=== PATIENT | female | born 1980 | race Hispanic/Latino ===

== ENCOUNTER 2016-09-04 12:09 | Emergency (ER) | payer OTHER ==
[~2016-09-04] VITALS: Ht 162.6 cm; Wt 81.0 kg
[~2016-09-04 12:09] MED LIST: AMOXICILLIN500 M1 PO; ANAPROX DS550 M1 PO; ANTIVERT25 MG PO; AUGMENTIN875 MG PO; CEPHALEXIN500 MG PO; COLACE100 MG PO; DOXYCYCLINE MO100 MG PO; ENDOCET 5-3251 EACH PO; FLEXERIL10 MG PO; HYCODAN SYRUP480 ML PO; HYDROCODON-ACE1 EAC7 PO; IBUPROFEN600 MG PO; IBUPROFEN800 MG PO; MAGIC MOUTHWASH1 ML MM; MOTRIN600 MG PO; MOTRIN800 MG PO; NAPROSYN500 MG PO; NAPROXEN500 MG PO; NORCO 5/3251 TABLET PO; PERCOCET 5/31 TABLET PO; REGLAN10 MG PO; XANAX1 MG PO; XANAX2 MG PO; wellbutrin PO
[2016-09-04 12:59] LABS: ADD MIUA? YES; BILIRUBIN NEGATIVE; BLOOD LARGE; COLOR YELLOW ((YELLOW)); GLUCOSE (STRIP) NEGATIVE; KETONES NEGATIVE; LEUKOCYTES SMALL; NITRITE NEGATIVE; PROTEIN (STRIP) NEGATIVE; SPECIFIC GRAVITY 1.016 (1.000-1.030); UROBILINOGEN 0.2 MG/DL (0.2-1.0)
[2016-09-04 13:06] LABS: HEMATOCRIT 41.6 % (36.0-46.0); MCH 28.5 PG (29.0-34.0); MCHC 32.5 G/DL (30.0-36.0); MCV 87.8 FL (83-99); RBC DIS.WIDTH-CV 12.2 % (11.8-14.6); RBC DIS.WIDTH-SD 39.8 % (39-53); RED BLOOD COUNT 4.74 M/uL (3.80-5.20); WHITE BLOOD COUNT 8.2 K/uL (4.1-10.2)
[2016-09-04 13:17] LABS: CHLORIDE 108 mEq/L (99-109); POTASSIUM 4.3 mEq/L (3.7-5.4); SODIUM 138 mEq/L (136-147)
[2016-09-04 13:20] LABS: GLUCOSE 92 mg/dL (70-99)
[2016-09-04 13:21] LABS: ANION GAP 9 MEQ/L (2-14)
[2016-09-04 13:22] LABS: TOTAL BILIRUBIN 0.5 mg/dL (0.0-1.0)
[2016-09-04 13:23] LABS: ALKALINE PHOSPHATASE 54 IU/L (3-129); GFR ESTIMATE (CALCULATED) > 59 mL/min/
[2016-09-04] MEDS ORDERED: ALPRAZOLAM0.5 MG PO (13:23)
[2016-09-04] MEDS ORDERED: OXYCODONE-APAP1 EACH PO (13:24)
[2016-09-04] MEDS ORDERED: ALPRAZOLAM1 MG PO (13:24)
[2016-09-04 13:25] LABS: UREA NITROGEN (BUN) 7 mg/dL (9-23)
[2016-09-04 13:32] LABS: QUANTITATIVE HCG < 4.0 MIU/ML
[2016-09-04 13:34] LABS: BACTERIA 2+ /HPF; CASTS NONE SEEN /LPF; CRYSTALS NONE SEEN; EPITHELIAL CELLS 3+ /HPF; MUCUS 4+ /LPF; RED BLOOD CELLS 0-5 /HPF (0-5); UCUL ADDED? YES
[2016-09-04 13:53] LABS: MEAN PLAT.VOLUME 10.9 uM^3 (9.5-12.4); PLATELET COUNT 259 K/uL (156-360)
[2016-09-04] MEDS ORDERED: MACROBID100 MG PO (14:04)
[2016-09-04] MEDS ORDERED: PYRIDIUM100 MG PO (14:04)
[2016-09-04 14:45] VITALS: BP 106/53
== END 2016-09-04 14:49 | disposition home or self-care (01) ==
LOC: EME 12:09
DX: N39.0 Urinary tract infection, site not specified (principal); Z85.41 Personal history of malignant neoplasm of cervix uteri; F17.200 Nicotine dependence, unspecified, uncomplicated
CPT/HCPCS: 80053; 81003; 84702; 85027; 87086; 99281; 99284

== ENCOUNTER 2016-12-22 11:30 | Emergency (ER) | payer OTHER ==
[~2016-12-22] VITALS: Ht 162.6 cm; Wt 75.2 kg
[~2016-12-22 11:30] MED LIST changes: +ALPRAZOLAM0.5 MG PO; +ALPRAZOLAM1 MG PO; +MACROBID100 MG PO; +OXYCODONE-APAP1 EACH PO; +PYRIDIUM100 MG PO
[2016-12-22] MEDS ORDERED: NAPROSYN500 MG PO (13:25)
[2016-12-22 14:00] VITALS: BP 141/92
== END 2016-12-22 14:00 | disposition home or self-care (01) ==
LOC: EME 11:30
DX: S93.401A Sprain of unspecified ligament of right ankle, initial encounter (principal); G89.29 Other chronic pain; W17.2XXA Fall into hole, initial encounter; Y92.410 Unspecified street and highway as the place of occurrence of the external cause
CPT/HCPCS: 73610; 99281; 99282

== ENCOUNTER 2017-06-24 17:46 | Emergency (ER) | payer OTHER ==
[~2017-06-24] VITALS: Ht 152.4 cm; Wt 74.8 kg
[2017-06-24 18:17] LABS: HEMATOCRIT 38.5 % (36.0-46.0); HEMOGLOBIN 12.9 G/DL (11.9-15.5); MCH 30.1 PG (29.0-34.0); MCHC 33.5 G/DL (30.0-36.0); RBC DIS.WIDTH-CV 12.6 % (11.8-14.6); RBC DIS.WIDTH-SD 41.6 % (39-53); RED BLOOD COUNT 4.28 M/uL (3.80-5.20)
[2017-06-24 18:28] LABS: ALBUMIN 4.3 g/dL (3.2-4.8); CHLORIDE 109 mEq/L (99-109); POTASSIUM 3.9 mEq/L (3.7-5.4); SODIUM 140 mEq/L (136-147)
[2017-06-24 18:30] LABS: GLUCOSE 92 mg/dL (70-99)
[2017-06-24 18:31] LABS: TOTAL PROTEIN 7.6 g/dL (6.4-8.3)
[2017-06-24 18:32] LABS: TOTAL BILIRUBIN 0.4 mg/dL (0.0-1.0)
[2017-06-24 18:34] LABS: ALKALINE PHOSPHATASE 53 IU/L (3-129); CREATININE 0.8 mg/dL (0.6-1.3); GFR ESTIMATE (CALCULATED) > 59 mL/min/
[2017-06-24 18:35] LABS: UREA NITROGEN (BUN) 12 mg/dL (9-23)
[2017-06-24 18:37] LABS: ALT (GPT) 11 IU/L (3-49)
[2017-06-24 18:42] LABS: QUANTITATIVE HCG < 4.0 MIU/ML
[2017-06-24 18:54] LABS: APPEARANCE CLEAR ((CLEAR)); BILIRUBIN NEGATIVE; BLOOD MODERATE; COLOR YELLOW ((YELLOW)); GLUCOSE (STRIP) NEGATIVE; KETONES NEGATIVE; LEUKOCYTES NEGATIVE; NITRITE NEGATIVE; PROTEIN (STRIP) NEGATIVE; SPECIFIC GRAVITY 1.017 (1.000-1.030); UROBILINOGEN 0.2 MG/DL (0.2-1.0)
[2017-06-24 18:58] LABS: BACTERIA NONE SEEN /HPF; EPITHELIAL CELLS 1+ /HPF; MUCUS TRACE /LPF; RED BLOOD CELLS 0-5 /HPF (0-5); UCUL ADDED? NO; WHITE BLOOD CELLS 0-5 /HPF (0-5)
[2017-06-24 19:00] LABS: AST (GOT) 16 IU/L (2-34); LIPASE 35 U/L (1.0-51.0)
[2017-06-24 19:01] LABS: PLAT.SUFFICIENCY ADEQUATE; PLATELET COUNT 260 K/uL (156-360)
[2017-06-24] MEDS ORDERED: ZOFRAN ODT8 MG PO (21:05)
[2017-06-24] MEDS ORDERED: BENTYL20 MG PO (21:05)
[2017-06-24 21:35] VITALS: BP 122/65
== END 2017-06-24 21:36 | disposition home or self-care (01) ==
LOC: EME 17:46
DX: R10.9 Unspecified abdominal pain (principal); R11.0 Nausea; F41.9 Anxiety disorder, unspecified; F17.200 Nicotine dependence, unspecified, uncomplicated; Z79.891 Long term (current) use of opiate analgesic; Z85.41 Personal history of malignant neoplasm of cervix uteri
CPT/HCPCS: 74176; 76705; 80053; 81003; 83690; 84702; 85027; 99281; 99284; J1885; J3010

== ENCOUNTER 2017-11-15 18:09 | Emergency (ER) | payer OTHER ==
[~2017-11-15] VITALS: Ht 162.6 cm; Wt 74.6 kg
[~2017-11-15 18:09] MED LIST changes: +BENTYL20 MG PO; +ZOFRAN ODT8 MG PO
[2017-11-15] MEDS ORDERED: ROBAXIN500 MG PO (21:08)
[2017-11-15] MEDS ORDERED: MOTRIN800 MG PO (21:08)
[2017-11-15 21:48] VITALS: BP 118/84
== END 2017-11-15 21:49 | disposition home or self-care (01) ==
LOC: EME 18:09
DX: S16.1XXA Strain of muscle, fascia and tendon at neck level, initial encounter (principal); S39.012A Strain of muscle, fascia and tendon of lower back, initial encounter; V49.40XA Driver injured in collision with unspecified motor vehicles in traffic accident, initial encounter; Y92.410 Unspecified street and highway as the place of occurrence of the external cause; F32.9 Major depressive disorder, single episode, unspecified; F41.9 Anxiety disorder, unspecified; F17.200 Nicotine dependence, unspecified, uncomplicated
CPT/HCPCS: 99281; 99284

== ENCOUNTER 2017-11-18 19:42 | Emergency (ER) | payer OTHER ==
[~2017-11-18] VITALS: Ht 162.6 cm; Wt 74.9 kg
[~2017-11-18 19:42] MED LIST changes: +ROBAXIN500 MG PO
[2017-11-18] MEDS ORDERED: VALIUM5 MG PO (20:43)
[2017-11-18] MEDS ORDERED: MOTRIN800 MG PO (20:43)
[2017-11-18 21:32] VITALS: BP 138/111
== END 2017-11-18 21:33 | disposition home or self-care (01) ==
LOC: EME 19:42
DX: S76.012A Strain of muscle, fascia and tendon of left hip, initial encounter (principal); S76.912A Strain of unspecified muscles, fascia and tendons at thigh level, left thigh, initial encounter; Y04.2XXA Assault by strike against or bumped into by another person, initial encounter; Y07.01 Husband, perpetrator of maltreatment and neglect; G89.29 Other chronic pain; F41.9 Anxiety disorder, unspecified; F32.9 Major depressive disorder, single episode, unspecified; F17.200 Nicotine dependence, unspecified, uncomplicated; Z79.891 Long term (current) use of opiate analgesic; Z90.721 Acquired absence of ovaries, unilateral; Z85.41 Personal history of malignant neoplasm of cervix uteri
CPT/HCPCS: 73502; 99281; 99285

== ENCOUNTER 2018-01-14 11:39 | Emergency (ER) | payer OTHER ==
[~2018-01-14] VITALS: Ht 170.2 cm; Wt 76.4 kg
[~2018-01-14 11:39] MED LIST changes: +VALIUM5 MG PO
[2018-01-14 12:18] LABS: APPEARANCE SL.HAZY ((CLEAR)); BILIRUBIN NEGATIVE; BLOOD LARGE; COLOR YELLOW ((YELLOW)); GLUCOSE (STRIP) NEGATIVE; KETONES NEGATIVE; LEUKOCYTES NEGATIVE; NITRITE NEGATIVE; PROTEIN (STRIP) 30; SPECIFIC GRAVITY 1.025 (1.000-1.030); UROBILINOGEN 0.2 MG/DL (0.2-1.0)
[2018-01-14 12:26] LABS: BACTERIA RARE /HPF; EPITHELIAL CELLS RARE /HPF; MUCUS 2+ /LPF; RED BLOOD CELLS TNTC /HPF (0-5); UCUL ADDED? YES; WHITE BLOOD CELLS 0-5 /HPF (0-5)
[2018-01-14 12:28] LABS: HEMATOCRIT 36.9 % (36.0-46.0); HEMOGLOBIN 12.7 G/DL (11.9-15.5); MCH 30.7 PG (29.0-34.0); MCHC 34.4 G/DL (30.0-36.0); MCV 89.1 FL (83-99); PLATELET COUNT 236 K/uL (156-360); RBC DIS.WIDTH-CV 11.9 % (11.8-14.6); RBC DIS.WIDTH-SD 37.8 % (39-53); RED BLOOD COUNT 4.14 M/uL (3.80-5.20); WHITE BLOOD COUNT 10.8 K/uL (4.1-10.2)
[2018-01-14 12:49] LABS: CHLORIDE 109 MEQ/L (99-109); POTASSIUM 3.8 MEQ/L (3.7-5.4); SODIUM 140 MEQ/L (136-147)
[2018-01-14 12:54] LABS: CREATININE 0.9 MG/DL (0.6-1.3); GFR ESTIMATE (CALCULATED) > 59 mL/min/; GLUCOSE 115 mg/dL (70-99); UREA NITROGEN (BUN) 11 mg/dL (9-23)
[2018-01-14 12:59] LABS: QUANTITATIVE HCG < 4.0 MIU/ML
[2018-01-14] MEDS ORDERED: ZOFRAN4 MG PO (15:22)
[2018-01-14] MEDS ORDERED: FLOMAX0.4 MG PO (15:22)
[2018-01-14] MEDS ORDERED: PERCOCET 5/31 TABLET PO (15:22)
[2018-01-14 15:39] VITALS: BP 146/101
== END 2018-01-14 15:57 | disposition home or self-care (01) ==
LOC: EME 11:39
PROVIDERS: Emergency Medicine
DX: N13.2 Hydronephrosis with renal and ureteral calculous obstruction (principal); F41.9 Anxiety disorder, unspecified; F32.9 Major depressive disorder, single episode, unspecified; F17.200 Nicotine dependence, unspecified, uncomplicated; Z79.891 Long term (current) use of opiate analgesic; Z98.890 Other specified postprocedural states; Z85.41 Personal history of malignant neoplasm of cervix uteri; Z90.721 Acquired absence of ovaries, unilateral
CPT/HCPCS: 74176; 80048; 81003; 84702; 85027; 87086; 99281; 99285; J1885; J2270; J2405; J7030